=== PATIENT | female | born 1950 | race Caucasian/White ===

== ENCOUNTER 2017-07-29 10:20 | Inpatient (IN) | payer BC, OTHER ==
[~2017-07-29] VITALS: Ht 160 cm; Wt 88.3 kg
[2017-07-29 10:46] LABS: APPEARANCE SL.HAZY ((CLEAR)); BILIRUBIN SMALL; BLOOD MODERATE; COLOR AMBER ((YELLOW)); GLUCOSE (STRIP) NEGATIVE; KETONES NEGATIVE; LEUKOCYTES MODERATE; NITRITE POSITIVE; PROTEIN (STRIP) 30; SPECIFIC GRAVITY 1.017 (1.000-1.030)
[2017-07-29 10:53] LABS: BACTERIA 3+ /HPF; CALCIUM OXALATE CRYSTALS 2+ /HPF; EPITHELIAL CELLS 1+ /HPF; MUCUS NONE SEEN /LPF; WHITE BLOOD CELLS TNTC /HPF (0-5)
[2017-07-29] MEDS ORDERED: LEVAQUIN750 MG PO (11:22)
[2017-07-29] MEDS ORDERED: ZOFRAN ODT4 MG PO (11:22)
[2017-07-29 11:43] LABS: HEMATOCRIT 36.5 % (36.0-46.0); MCH 29.3 PG (29.0-34.0); MCHC 35.6 G/DL (30.0-36.0); MCV 82.4 FL (83-99); PLATELET COUNT 77 K/uL (156-360); RBC DIS.WIDTH-CV 15.5 % (11.8-14.6); RED BLOOD COUNT 4.43 M/uL (3.80-5.20); WHITE BLOOD COUNT 19.2 K/uL (4.1-10.2)
[2017-07-29 12:07] LABS: TROP-I INTERPRETATION NEGATIVE; TROPONIN-I < 0.01 ng/mL (0.0-0.30)
[2017-07-29 12:10] LABS: ALBUMIN 2.6 G/DL (3.2-4.8); ALKALINE PHOSPHATASE 206 IU/L (3-129); ALT (GPT) 45 IU/L (3-49); AST (GOT) 45 IU/L (2-34); CHLORIDE 102 MEQ/L (99-109); GFR ESTIMATE (CALCULATED) > 59 mL/min/; GLUCOSE 123 mg/dL (70-99); POTASSIUM 2.8 MEQ/L (3.7-5.4); SODIUM 135 MEQ/L (136-147); TOTAL PROTEIN 5.6 G/DL (6.4-8.3); UREA NITROGEN (BUN) 37 mg/dL (9-23)
[2017-07-29] MEDS ORDERED: ZOFRAN4 MG PO (15:20)
[2017-07-29] MEDS ORDERED: VIMOVO 500-201 EAC1 PO (15:21)
[2017-07-29] MEDS ORDERED: TAMIFLU75 MG PO (15:21)
[2017-07-29] MEDS ORDERED: AMBIEN10 MG PO (15:22)
[2017-07-29] MEDS ORDERED: GUMMI BEAR MUL1 EACH PO (15:22)
[2017-07-29 17:35] LABS: LIPASE < 3.0 U/L (1.0-51.0)
[2017-07-29 17:42] VITALS: BP 125/63
[2017-07-29 19:54] VITALS: BP 144/69
[2017-07-29 21:13] LABS: CHLORIDE 104 MEQ/L (99-109); CREATININE 0.9 MG/DL (0.6-1.3); GFR ESTIMATE (CALCULATED) > 59 mL/min/; GLUCOSE 110 mg/dL (70-99); MAGNESIUM 1.8 mg/dl (1.3-2.7); PHOSPHORUS 2.7 mg/dL (2.5-4.9); SODIUM 134 MEQ/L (136-147); UREA NITROGEN (BUN) 36 mg/dL (9-23)
[2017-07-29 21:17] LABS: POTASSIUM 3.5 MEQ/L (3.7-5.4)
[2017-07-29 21:31] LABS: TROP-I INTERPRETATION NEGATIVE; TROPONIN-I 0.06 ng/mL (0.0-0.30)
[2017-07-29 22:15] VITALS: BP 120/60
[2017-07-29 23:08] VITALS: BP 121/71
[2017-07-30] VITALS (7 sets, daily range): BP systolic 120–147; BP diastolic 58–81
[2017-07-30 05:18] LABS: BASOPHIL (%) 0.3 % (0-1); BASOPHIL COUNT 0.1 K/uL (0-0.1); EOSINOPHIL (%) 0.3 % (0-5); EOSINOPHIL COUNT 0.1 K/uL (0-0.3); HEMATOCRIT 31.4 % (36.0-46.0); LYMPHOCYTE (%) 9.5 % (15-42); LYMPHOCYTE COUNT 1.7 K/uL (1.0-2.8); MCH 28.3 PG (29.0-34.0); MCHC 33.8 G/DL (30.0-36.0); MONOCYTE (%) 5.8 % (3-12); NEUTROPHIL (%) 83.1 % (45-76); NEUTROPHIL COUNT 14.8 K/uL (1.8-6.4); PLATELET COUNT 81 K/uL (156-360); RBC DIS.WIDTH-SD 49.2 % (39-53); RED BLOOD COUNT 3.74 M/uL (3.80-5.20); WHITE BLOOD COUNT 17.8 K/uL (4.1-10.2)
[2017-07-30 05:19] LABS: HEMOGLOBIN 10.6 G/DL (11.9-15.5)
[2017-07-30 06:06] LABS: ALT (GPT) 36 IU/L (3-49); AST (GOT) 28 IU/L (2-34); CHLORIDE 107 MEQ/L (99-109); CREATININE 0.9 MG/DL (0.6-1.3); GFR ESTIMATE (CALCULATED) > 59 mL/min/; GLUCOSE 109 mg/dL (70-99); POTASSIUM 3.7 MEQ/L (3.7-5.4); SODIUM 139 MEQ/L (136-147); UREA NITROGEN (BUN) 34 mg/dL (9-23)
[2017-07-30 06:17] LABS: ALKALINE PHOSPHATASE 148 IU/L (3-129); TOTAL BILIRUBIN 2.2 MG/DL (0.0-1.0); TOTAL PROTEIN 4.5 G/DL (6.4-8.3)
[2017-07-31 03:15] VITALS: BP 130/68
[2017-07-31 05:20] LABS: BASOPHIL (%) 0.4 % (0-1); EOSINOPHIL (%) 1.8 % (0-5); EOSINOPHIL COUNT 0.2 K/uL (0-0.3); HEMATOCRIT 32.5 % (36.0-46.0); HEMOGLOBIN 10.8 G/DL (11.9-15.5); IMMATURE GRANULOCYTE (%) 1.1 % (0.0-0.7); LYMPHOCYTE (%) 19.3 % (15-42); LYMPHOCYTE COUNT 2.2 K/uL (1.0-2.8); MCH 28.3 PG (29.0-34.0); MCHC 33.2 G/DL (30.0-36.0); MCV 85.1 FL (83-99); MONOCYTE (%) 6.9 % (3-12); MONOCYTE COUNT 0.8 K/uL (0-0.8); NEUTROPHIL (%) 70.5 % (45-76); NEUTROPHIL COUNT 7.9 K/uL (1.8-6.4); RBC DIS.WIDTH-CV 16.5 % (11.8-14.6); RBC DIS.WIDTH-SD 51.3 % (39-53); RED BLOOD COUNT 3.82 M/uL (3.80-5.20); WHITE BLOOD COUNT 11.1 K/uL (4.1-10.2)
[2017-07-31 05:52] LABS: CHLORIDE 109 MEQ/L (99-109); CREATININE 0.7 MG/DL (0.6-1.3); GFR ESTIMATE (CALCULATED) > 59 mL/min/; GLUCOSE 113 mg/dL (70-99); POTASSIUM 3.4 MEQ/L (3.7-5.4); SODIUM 140 MEQ/L (136-147); UREA NITROGEN (BUN) 25 mg/dL (9-23)
[2017-07-31 06:30] LABS: PLATELET COUNT 143 K/uL (156-360)
[2017-07-31 07:22] VITALS: BP 134/64
[2017-07-31 09:00] LABS: STOOL OCCULT BLD 1ST SPECIMEN NEGATIVE
[2017-07-31 09:09] LABS: ALKALINE PHOSPHATASE 130 IU/L (3-129); ALT (GPT) 26 IU/L (3-49); AST (GOT) 16 IU/L (2-34); DIRECT BILIRUBIN 0.4 mg/dL (0.0-0.3); TOTAL PROTEIN 4.8 G/DL (6.4-8.3)
[2017-07-31 12:23] VITALS: BP 137/68
[2017-07-31 17:41] VITALS: BP 183/84
[2017-07-31 19:56] VITALS: BP 140/65
[2017-07-31 23:30] VITALS: BP 146/71
[2017-08-01] VITALS (7 sets, daily range): BP systolic 134–160; BP diastolic 59–90
[2017-08-01 06:02] LABS: HEMATOCRIT 32.9 % (36.0-46.0); HEMOGLOBIN 10.7 G/DL (11.9-15.5); MCH 28.1 PG (29.0-34.0); MCHC 32.5 G/DL (30.0-36.0); MCV 86.4 FL (83-99); RBC DIS.WIDTH-CV 16.4 % (11.8-14.6); RBC DIS.WIDTH-SD 51.8 % (39-53); RED BLOOD COUNT 3.81 M/uL (3.80-5.20); WHITE BLOOD COUNT 15.2 K/uL (4.1-10.2)
[2017-08-01 06:25] LABS: PLATELET COUNT 222 K/uL (156-360)
[2017-08-01 06:39] LABS: ALBUMIN 2.2 G/DL (3.2-4.8); ALKALINE PHOSPHATASE 122 IU/L (3-129); ALT (GPT) 28 IU/L (3-49); AST (GOT) 23 IU/L (2-34); CHLORIDE 110 MEQ/L (99-109); CREATININE 0.6 MG/DL (0.6-1.3); DIRECT BILIRUBIN 0.5 mg/dL (0.0-0.3); GFR ESTIMATE (CALCULATED) > 59 mL/min/; GLUCOSE 109 mg/dL (70-99); POTASSIUM 3.8 MEQ/L (3.7-5.4); SODIUM 141 MEQ/L (136-147); TOTAL PROTEIN 5.1 G/DL (6.4-8.3); UREA NITROGEN (BUN) 12 mg/dL (9-23)
[2017-08-01 06:44] LABS: TOTAL BILIRUBIN 1.4 MG/DL (0.0-1.0)
[2017-08-02 03:36] VITALS: BP 151/70
[2017-08-02 05:58] LABS: HEMATOCRIT 31.1 % (36.0-46.0); HEMOGLOBIN 9.8 G/DL (11.9-15.5); MCH 27.5 PG (29.0-34.0); MCHC 31.5 G/DL (30.0-36.0); MCV 87.1 FL (83-99); PLATELET COUNT 272 K/uL (156-360); RBC DIS.WIDTH-CV 15.9 % (11.8-14.6); RBC DIS.WIDTH-SD 50.5 % (39-53); RED BLOOD COUNT 3.57 M/uL (3.80-5.20); WHITE BLOOD COUNT 15.2 K/uL (4.1-10.2)
[2017-08-02 06:10] LABS: ALBUMIN 2.2 G/DL (3.2-4.8); ALKALINE PHOSPHATASE 138 IU/L (3-129); ALT (GPT) 28 IU/L (3-49); AST (GOT) 22 IU/L (2-34); CHLORIDE 107 MEQ/L (99-109); CREATININE 0.5 MG/DL (0.6-1.3); GFR ESTIMATE (CALCULATED) > 59 mL/min/; GLUCOSE 100 mg/dL (70-99); POTASSIUM 3.4 MEQ/L (3.7-5.4); SODIUM 138 MEQ/L (136-147); TOTAL PROTEIN 5.2 G/DL (6.4-8.3); UREA NITROGEN (BUN) 7 mg/dL (9-23)
[2017-08-02 06:13] LABS: TOTAL BILIRUBIN 1.1 MG/DL (0.0-1.0)
[2017-08-02 07:05] VITALS: BP 158/74
[2017-08-02 11:11] VITALS: BP 160/75
[2017-08-02 15:28] VITALS: BP 162/73
[2017-08-02 20:10] VITALS: BP 148/80
[2017-08-03] VITALS: BP 128/76
[2017-08-03 03:35] VITALS: BP 132/78
[2017-08-03 07:49] VITALS: BP 157/75
[2017-08-03 08:24] LABS: HEMATOCRIT 30.5 % (36.0-46.0); MCH 28.5 PG (29.0-34.0); MCHC 32.8 G/DL (30.0-36.0); MCV 86.9 FL (83-99); RBC DIS.WIDTH-CV 15.6 % (11.8-14.6); RBC DIS.WIDTH-SD 49.2 % (39-53); RED BLOOD COUNT 3.51 M/uL (3.80-5.20); WHITE BLOOD COUNT 14.2 K/uL (4.1-10.2)
[2017-08-03 08:26] LABS: PLATELET COUNT 418 K/uL (156-360)
[2017-08-03 08:49] LABS: CHLORIDE 107 MEQ/L (99-109); CREATININE 0.5 MG/DL (0.6-1.3); GFR ESTIMATE (CALCULATED) > 59 mL/min/; GLUCOSE 106 mg/dL (70-99); POTASSIUM 3.9 MEQ/L (3.7-5.4); SODIUM 139 MEQ/L (136-147); UREA NITROGEN (BUN) 8 mg/dL (9-23)
[2017-08-03] MEDS ORDERED: CEFTIN500 MG PO (10:14)
== END 2017-08-03 12:34 | disposition home or self-care (01) | DRG 872 ==
LOC: EME 10:20 → ENRESERV 14:46 → 2EAST 15:49 → EDOF 15:49 → 4EAST 15:49 → ENRESERV 15:51 → 5SOUTH 17:25 → ENRESERV 20:29 → 4EAST 22:08 → ENRESERV 07-31 15:21 → 2EAST 07-31 17:25
PROVIDERS: Emergency Medicine Emergency Medical Services; Family Medicine; Hospitalist; Internal Medicine
DX: A41.51 Sepsis due to Escherichia coli [E. coli] (principal); N12 Tubulo-interstitial nephritis, not specified as acute or chronic; E86.0 Dehydration; E87.6 Hypokalemia; D69.6 Thrombocytopenia, unspecified; J98.11 Atelectasis; R19.7 Diarrhea, unspecified; R11.2 Nausea with vomiting, unspecified; K21.9 Gastro-esophageal reflux disease without esophagitis
CPT/HCPCS: 71045; 71250; 74176; 74181; 76705; 80048; 80048 91; 80053; 80076; 81003; 82272; 83605; 83690; 83735; 84100; 84484; 85025; 85027; 87040; 87077; 87086; 87186; 87502; 87801; 94799; 99281; 99285; C9113; J0696; J0780; J1650; J1885; J2405; J3010; J3480; J7030; J7120

== ENCOUNTER → 2017-08-13 | Outpatient (CLI) | payer BC, MEDICARE ==
[~2017-08-13] MED LIST: AMBIEN10 MG PO; CEFTIN500 MG PO; COLACE100 MG PO; GUMMI BEAR MUL1 EACH PO; LEVAQUIN750 MG PO; PROTONIX40 MG PO; TAMIFLU75 MG PO; VIMOVO 500-201 EAC1 PO; ZOFRAN ODT4 MG PO; ZOFRAN4 MG PO
== END | disposition home or self-care (01) ==
LOC: CDC 11:00
DX: Z01.810 Encounter for preprocedural cardiovascular examination (principal); K81.9 Cholecystitis, unspecified; R94.31 Abnormal electrocardiogram [ECG] [EKG]
CPT/HCPCS: 93000

== ENCOUNTER 2017-08-16 06:10 | Day surgery (SDC) | payer BC, OTHER ==
[~2017-08-16] VITALS: Ht 162.6 cm; Wt 79.4 kg
[2017-08-16 07:03] VITALS: BP 172/87
[2017-08-16 08:42] LABS: AMYLASE 13 IU/L (1-118); LIPASE < 3.0 U/L (1.0-51.0)
[2017-08-16] MEDS ORDERED: ULTRAM50 MG PO (09:28)
[2017-08-16 10:52] VITALS: BP 144/69
[2017-08-16 12:02] VITALS: BP 130/70
== END 2017-08-16 12:17 | disposition home or self-care (01) ==
LOC: SDC
PROVIDERS: Surgery
PROC: 0FT44ZZ Resection of Gallbladder, Percutaneous Endoscopic Approach (ICD-10-PCS; principal; 2017-08-16)
DX: K80.10 Calculus of gallbladder with chronic cholecystitis without obstruction (principal); K66.0 Peritoneal adhesions (postprocedural) (postinfection); I10 Essential (primary) hypertension; K21.9 Gastro-esophageal reflux disease without esophagitis
CPT/HCPCS: 80053; 82150; 83690; 88304; J0330; J0690; J1100; J1170; J2405; J2710; J3010; J7643